=== PATIENT | male | born 1990 | race Caucasian/White ===

== ENCOUNTER 2018-11-17 03:10 | Emergency (ER) | payer BC ==
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
== END 2018-11-17 04:47 | disposition home or self-care (01) ==
LOC: MW.ED 03:10
DX: S02.2XXA Fracture of nasal bones, initial encounter for closed fracture (principal); J32.0 Chronic maxillary sinusitis; M79.641 Pain in right hand; M25.521 Pain in right elbow; F10.129 Alcohol abuse with intoxication, unspecified; Y04.0XXA Assault by unarmed brawl or fight, initial encounter
CPT/HCPCS: 70450; 70450-26; 70486; 70486-26; 72125; 72125-26; 73080-26-RT; 73080-RT; 73130-26-RT; 73130-RT; 99284-25